=== PATIENT | female | born 1935 | race Caucasian/White ===

== ENCOUNTER 2020-08-31 10:56 | Emergency (ER) | payer MEDICARE ==
[~2020-08-31] VITALS: Ht 152.4 cm; Wt 63.5 kg
[2020-08-31 11:05] VITALS: BP 171/85
--- NOTE | 2020-08-31 11:15 | NUR ---
84/F biba with c/o ALOC. Per EMS, patient was found altered by son 40 minutes prior to arrival to ED. Son states patient has been c/o weakness the last 3 days, states today she was not responding to him when spoken to. EMS states patient blood sugar on scene was 39, patient given D10 by EMS, sugar rechecked and was 153. 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
--- NOTE | 2020-08-31 11:33 | NUR ---
PT TAKEN TO CT SCAN VIA [facility]
--- NOTE | 2020-08-31 11:43 | NUR ---
Patient returned from CT
[2020-08-31] MEDS ORDERED: NACL 0.9% 1,000 ML IV ONE (12:05)
--- NOTE | 2020-08-31 12:21 | NUR ---
cardiac cath lab radiology technologist at bedside
[2020-08-31 12:43] LABS: BASOPHILS % (AUTO) 0.4 % (0.0-2.0); EOSINOPHILS % (AUTO) 0.2 % (0.0-4.0); HEMATOCRIT 32.9 % (36-48); HEMOGLOBIN 10.5 g/dL (12.0-16.0); LYMPHOCYTES % (AUTO) 14.5 % (20.5-51.1); MEAN CORPUSCULAR HEMOGLOBIN 30 pg (27-31); MEAN CORPUSCULAR HGB CONC 32 g/dL (33-37); MEAN CORPUSCULAR VOLUME 93.8 fL (80-94); MONOCYTES # (AUTO) 0.2 K/uL (0.8-1.0); MONOCYTES % (AUTO) 2.5 % (1.7-9.3); NEUTROPHILS # (AUTO) 5.7 K/uL (1.8-7.7); NEUTROPHILS % (AUTO) 82.4 % (42.2-75.2); PLATELET COUNT (AUTO) 185 K/uL (140-450); RED BLOOD CELL COUNT(AUTO) 3.51 MIL/uL (4.20-5.40); RED CELL DISTRIBUTION WIDTH 15.5 % (11.6-13.7)
--- NOTE | 2020-08-31 13:09 | NUR ---
Marisela swab collected and walked to lab.
[2020-08-31 13:17] LABS: ALBUMIN 3.9 g/dL (3.4-5.0); ANION GAP 19.6 (8-16); ASPARTATE AMINOTRANSFERASE 17 U/L (15-37); CARBON DIOXIDE 17.3 mmol/L (21-32); CHLORIDE 109 mmol/L (98-107); GLUCOSE 175 mg/dL (74-106); LIPASE 410 U/L (73-393); POTASSIUM 4.9 mmol/L (3.5-5.1); SODIUM SERUM 141 mmol/L (136-145); TOTAL BILIRUBIN 0.3 mg/dL (0.0-1.0)
[2020-08-31 13:26] LABS: CREATININE 8.2 mg/dL (0.6-1.3); UREA NITROGEN, BLOOD 81 mg/dL (7-18)
[2020-08-31 13:27] LABS: APPEARANCE,URINE CLEAR (CLEAR); BILIRUBIN,URINE NEGATIVE (NEGATIVE); BLOOD, URINE 1+ (NEGATIVE); COLOR,URINE YELLOW (YELLOW); LEUKOCYTE ESTERASE ,URINE NEGATIVE (NEGATIVE); NITRITE, URINE NEGATIVE (NEGATIVE); PH,URINE 6.5 (5.0-9.0); UGLUCOSE 1+ (NEGATIVE)
[2020-08-31 14:26] LABS: RBC,URINE NONE SEEN /HPF (0-5); WBC,URINE NONE SEEN /HPF (0-5)
[2020-08-31] MEDS ORDERED: NACL 0.9% 500 ML IV ONE (14:50)
[2020-08-31] MEDS ORDERED: ATOR40TA PO (16:59)
[2020-08-31] MEDS ORDERED: ATEN100T6 PO (17:23)
[2020-08-31] MEDS ORDERED: GLIP5TAB13 PO (17:25)
[2020-08-31] MEDS ORDERED: ROC.25 PO (17:25)
[2020-08-31] MEDS ORDERED: CLIN300C2 PO (17:26)
[2020-08-31] MEDS ORDERED: HYDR-3233 PO (17:27)
--- NOTE | 2020-08-31 18:46 | NUR ---
Patient resting, on bedside control room operator, vital signs stable.
--- NOTE | 2020-08-31 19:15 | NUR ---
Pt report given to Navya. Transfer of care at this time.
--- NOTE | 2020-08-31 19:15 | NUR ---
RECEIVED REPORT FROM HECTOR MAK. FOR CONTINUITY OF CARE
--- NOTE | 2020-08-31 21:30 | NUR ---
CALLED SON, KATHERINE TO BRING HER ID
--- NOTE | 2020-08-31 21:46 | NUR ---
REPORT CALLED TO [facility], SPOKE TO NAYANA YOUNG AND GAVE REPORT
--- NOTE | 2020-08-31 23:49 | NUR ---
[facility]; SPOKE TO JERSON. TRANSPORT IS SUPPOSED TO BE 2200. PER [facility] COORDINATOR, THEY WILL CALL BACK WITH A NEW ETA
[2020-09-01 01:15] VITALS: BP 147/52
--- NOTE | 2020-09-01 01:15 | NUR ---
Patient to be transferred to [facility]. Is being transferred due to INSURANCE REQUEST. Receiving facility has accepting physician and available space. ER physician has signed transfer form. Patient or responsible green party has agreed to transfer and signed form. Patient belongings inventoried and will be sent with patient. Copy of nursing notes, lab reports, EKG, Physicians Orders and X-rays to be sent with patient. Report called to NAYANA OYUNG at receiving facility. [facility] ambulance service has been called for transfer. ETA is 0200.
--- NOTE | 2020-09-01 01:15 | NUR ---
[facility] TRANSPORT AT BEDSIDE
--- NOTE | 2020-09-01 01:26 | NUR ---
PT TAKEN BY [facility] TO [facility] ROOM [address]
== END 2020-09-01 01:26 | disposition short-term general hospital (02) ==
LOC: MED 10:56
DX: E11.22 Type 2 diabetes mellitus with diabetic chronic kidney disease (principal); N18.9 Chronic kidney disease, unspecified; F10.129 Alcohol abuse with intoxication, unspecified
CPT/HCPCS: 36415; 70450; 71045; 80053; 81001; 82948; 83605; 83690; 84484; 85025; 87040; 87086; 87426; 93005; 96360; 96361; 99285; J7030